=== PATIENT | male | born 1970 ===

== ENCOUNTER 2023-01-12 06:52 | Day surgery (SDC) | payer OTHER | END 2023-01-12 13:05 | disposition home or self-care (01) | LOC: AMB-ENDOS 06:52 | PROVIDERS: ATTEND Colon & Rectal Surgery | DX: D12.4 Benign neoplasm of descending colon (principal); K57.30 Diverticulosis of large intestine without perforation or abscess without bleeding; Z12.11 Encounter for screening for malignant neoplasm of colon; K64.8 Other hemorrhoids ==